=== PATIENT | male | born 1985 | race American Indian/Alaskan Native ===

== ENCOUNTER 2022-05-23 02:50 | Emergency (ER) | payer BC ==
[~2022-05-23] VITALS: Ht 170.2 cm; Wt 90.1 kg
== END 2022-05-23 06:08 | disposition home or self-care (01) ==
LOC: ED 02:50
DX: K80.20 Calculus of gallbladder without cholecystitis without obstruction (principal)
CPT/HCPCS: 36415; 74177; 76705; 80053; 81003; 83690; 85025; 96375; 99284-25; J1885; J2270; J2405; J7121; Q9967

== ENCOUNTER 2022-07-16 06:37 | Day surgery (SDC) | payer BC, OTHER ==
[~2022-07-16] VITALS: Ht 170.2 cm; Wt 88.6 kg
--- NOTE | 2022-07-16 08:42 | NUR ---
PT ALERT, ORIENTED AND SUPPORTED BY HIS G.FRIEND SONAL. PT A BIT ANXIOUS ALL QUESTIONS ASKED ANSWERED. SONAL WILL LEAVE AND RETURN FOR DC. PRAYER OFFERED FOR PT. GAVE ENCOURAGEMENT AND SUPPORT. WILL FOLLOW
[2022-07-16] MEDS ORDERED: ACETAMINOPHEN500 MG PO (11:22)
[2022-07-16] MEDS ORDERED: OXYCODON-ACETA1 EAC2 PO (11:22)
[2022-07-16] MEDS ORDERED: IBUPROFEN600 MG PO (11:22)
--- NOTE | 2022-07-16 11:35 | NUR ---
07/16/22 1135 Luci Allan PATIENT WAKES TO MY LOUD VOICE AND GENTLE TOUCH. HE REACHES FOR THE ORAL AIRWAY. I REMOVE THIS AND HE FALLS QUICKLY BACK TO RESTING QUIETLY WITH HIS EYES CLOSED. OXYGEN SATURATION DROPS FROM 99% ON 6L VIA MASK TO 93% ON RA.
--- NOTE | 2022-07-16 12:21 | NUR ---
1149: PT ARRIVES BACK TO DS RM 3 FROM PACU AWAKE AND ALERT. PT DENIES PAIN IN ABD WHEN ASKED. PT TOLERATES WATER WITH NO NAUSEA AND WOULD LIKE TO WAIT ON EATING AT THIS TIME. DC CRITERIA EXPLAINED AND CALL LIGHT WITHIN REACH.
--- NOTE | 2022-07-16 17:41 | NUR ---
[id number]: PT CONT TO REST IN BED. PT RATES PAIN IN ABD 3/10 AND IS COMFORTABLE. PT ENCOURAGED TO USE CALL LIGHT WITH URGE TO VOID AND/OR ANY NEEDS. CALL LIGHT WITHIN REACH. [id number]: PT RESTING IN BED, RATES PAIN 6/10 AND ACCEPTS PAIN RX AT THIS TIME. PT ASKS THIS RN, "WHEN CAN I HEAD HOME?" PT REMINDED OF NEED TO VOID PRIOR TO DC HOME. PT STATES, "OH, I CAN DO THAT NOW" PT UP TO BATHROOM WITH STEADY GAIT AND RN ASSIST. PT ABLE TO VOID 900 MLS RASHAAD COLORED URINE WITH NO PROBLEMS. PT BACK TO DS RM 3 TO GET DRESSED. PT TEXTS GIRLFRIEND FOR SAFE RIDE HOME, DC INSTRUCTIONS PRESENTED VERBALLY AND WRITTEN. PT DC VIA WC FROM DS RM 3 TO SIG OTHER WAITING AT MAIN HOSPITAL ENTRANCE TO HOME.
--- NOTE | 2022-07-17 10:37 | OR ---
[facility] [place] [facility] [address], [place] [address] Signed DATE OF OPERATION: 07/16/2022 SURGEON: Loly Palmer MD PREOPERATIVE DIAGNOSIS: Symptomatic gallstones. POSTOPERATIVE DIAGNOSIS: Chronic calculous cholecystitis with gallstones; contracted gallbladder, cholangiogram normal. PROCEDURES: 1. Laparoscopic cholecystectomy with intraoperative cholangiogram. 2. Surgeon-directed fluoroscopy. ANESTHESIA: General endotracheal; Chata Wilkerson CRNA and local 10 mL of 0.25% Marcaine with epinephrine. INDICATIONS: This 36-year-old man is a patient of VENTURA Alamo, at [facility] and referred for symptomatic gallstones. He presented to the emergency room at [facility] on May 23 with severe right upper abdominal pain lasting at least 2 hours. Evaluation included a gallbladder ultrasound confirming gallstones without other findings of acute cholecystitis. The patient is in good health otherwise. He has had several episodes of a similar type in the past. He was admitted at this time to undergo cholecystectomy. He understands the risks of bleeding, infection, bile duct injury, need for open procedure and of course failure to cure his symptoms. Understanding this, he wished to proceed. FINDINGS: The gallbladder was contracted and chronically inflamed. He was found to have a gallbladder wedged in the infundibulum. Cholangiogram was normal. There was significant scarring and inflammation in the region of the infundibulum and the cystic duct. Liver appeared with mild fatty infiltration. There were no other findings of concern. PROCEDURE IN DETAIL: The patient was brought to the operating room, given a general endotracheal anesthetic. Preoperative antibiotic of Ancef was given. Sequential compression device stockings Electronically Signed By: LOLY PALMER MD 07/17/22 [facility] PATIENT NAME: BIGG WALTERS OPERATIVE REPORT DATE OF : 85 REPORT #: [id number] PHYSICIAN: LOLY PALMER MD PCP: [facility] REPORT IS CONFIDENTIAL AND NOT TO BE RELEASED WITHOUT AUTHORIZATION [facility] [place] [facility] [address], [place] [address] Signed were used and heparin subcutaneously administered. The abdomen was clipped and prepared with chlorhexidine solution and draped sterilely. An infraumbilical incision was made and using an open Patrick cannula technique pneumoperitoneum was achieved to a level of 14 mmHg of carbon dioxide gas. Intra-abdominal inspection showed no sign of ascites or carcinomatosis. The liver had mild fatty infiltration. The apex of the gallbladder was barely visible, but appeared to be dull barrett in color. Three additional trocars were placed in usual configuration in the subxiphoid right midclavicular, and right anterior axillary line. The gallbladder was elevated cephalad and found to have adhesions on its undersurface. Laparoscopic removal of the adhesions and freeing of the gallbladder allowed for increased elevation of the gallbladder. The infundibulum was grasped and retracted laterally. There was a fair amount of fatty tissue over the infundibulum, was dissected free with meticulous care, identifying a dominant cystic artery which was doubly clipped and divided. Further dissection showed the anatomy of the infundibulum to be better characterized and with meticulous care. The cystic duct was ultimately dissected free and isolated well. A clip was applied across gallbladder cystic duct junction and a transverse choledochotomy made in the cystic duct. Egress of clear bile was noted. Using the Bergman type cholangiocatheter intraoperative cholangiography was undertaken showing free flow of contrast into the biliary tree with prompt emptying into the duodenum. Retrograde filling showed the left and right main hepatic bile ducts. The catheter was removed. The cystic duct was triply clipped and divided. The gallbladder dissected free in a retrograde fashion using electrocautery. The gallbladder was extracted through the infraumbilical port site opened on the back table and found to have chronic inflammatory change and several 1 cm gallstones of various size and shape. There was no evidence of malignancy. Chronic inflammation of mucosa was noted. The subhepatic space was assured for hemostasis with electrocautery. Irrigation was undertaken. There was no sign of bile leak, bleeding or other problems. Excess irrigation fluid was suctioned free. The trocars were removed under direct visualization showing no sign of bleeding. The infraumbilical fascial incision was reapproximated with interrupted 0 Vicryl suture. A 10 mL of 0.25% Marcaine with epinephrine injected locally in the trocar sites. The skin closed with interrupted 3-0 Vicryl. Steri-Strips were applied. The patient was ultimately extubated and transferred to the recovery room in good condition having suffered no complication. Sponge, needle, and instrument counts reported as correct x3. Loly Palmer MD Electronically Signed By: LOLY PALMER MD 07/17/22 1037 PATIENT NAME: BIGG WALTERS OPERATIVE REPORT DATE OF : 85 REPORT #: [id number] PHYSICIAN: LOLY PALMER MD PCP: [facility] REPORT IS CONFIDENTIAL AND NOT TO BE RELEASED WITHOUT AUTHORIZATION [facility] [address] [place], [place] [address] Signed /[facility] /[id number] cc: VENTURA Alamo [facility] Copies: ~ Electronically Signed By: LOLY PALMER MD 07/17/22 1037 PATIENT NAME: ARTEM WALTERSUS VERDINE CITLALY OPERATIVE REPORT DATE OF : 85 REPORT #: [id number] PHYSICIAN: LOLY PALMER MD PCP: [facility] REPORT IS CONFIDENTIAL AND NOT TO BE RELEASED WITHOUT AUTHORIZATION
--- NOTE | 2022-07-17 14:11 | PATH ---
[facility] [address] [facility] [place], [place] [address] Signed SPECIMEN(S): A GALLBLADDER AND GALLSTONES SPECIMEN SOURCE: A. GALLBLADDER AND GALLSTONES CLINICAL HISTORY: Calculus of gallbladder with cholecystitis. FINAL PATHOLOGIC DIAGNOSIS: Gallbladder, cholecystectomy: - Chronic calculous cholecystitis with cholesterolosis. BRP:surjit:C2GOOD MICROSCOPIC EXAMINATION: Histologic sections of all submitted blocks are examined by light microscopy. These findings, together with the gross examination, support the pathologic diagnosis. GROSS DESCRIPTION: The specimen, labeled and designated "Walters, gallbladder," is received in formalin and consists of Specimen: Previously opened gallbladder. Dimensions: 8.2 x 3.3 cm. Serosa: Violaceous, smooth. Cystic Duct: Inked, unobstructed. Calculi: Two green-hodges gallstones within the container that measure 0.7 and 2.1 cm in greatest dimension. Mucosa: [place]-hod[place], velvety. Wall thickness: 0.8 cm. Lymph node: No pericystic lymph nodes are grossly identified. Additional: None. Test Specialist sections are submitted in (A1). JS (under the direct supervision of a pathologist) The Gross Description was prepared using a voice recognition system. The report was reviewed for accuracy; however, sound-alike word errors, addition and/or deletions may occur. If there is any question about this report, please contact Client Services. PERFORMING LABORATORY: The technical component was performed by [facility], [address] [place] [id number] (CLIA# [id number]). Professional interpretation was PATIENT NAME: BIGG WALTERS [facility] PATHOLOGY DATE OF : 85 REPORT #: [id number] PHYSICIAN: [facility] PCP: [facility] REPORT IS CONFIDENTIAL AND NOT TO BE RELEASED WITHOUT AUTHORIZATION [facility] [address] [place] [address] [place], [place] [address] Signed [facility], [address] [place] [address] (CLIA# [id number]). Diagnostician: Dale Matos MD Pathologist Electronically Signed 07/17/2022 Copies: ~ PATIENT NAME: BIGG WALTERS [facility] PATHOLOGY DATE OF : 85 REPORT #: [id number] PHYSICIAN: [facility] PCP: [facility] REPORT IS CONFIDENTIAL AND NOT TO BE RELEASED WITHOUT AUTHORIZATION
== END 2022-07-16 14:14 | disposition home or self-care (01) ==
LOC: DS 06:37
PROVIDERS: ATTEND Surgery
PROC: 0FT44ZZ Resection of Gallbladder, Percutaneous Endoscopic Approach (ICD-10-PCS; principal; 2022-07-16 08:45)
DX: K80.10 Calculus of gallbladder with chronic cholecystitis without obstruction (principal)
CPT/HCPCS: 74300; J0131; J0690; J1100; J1644; J1885; J2001; J2250; J2405; J2704; J7121; Q9967